=== PATIENT | female | born 1955 | race Caucasian/White ===

== ENCOUNTER 2017-09-19 11:06 | Outpatient (CLI) | payer OTHER ==
[~2017-09-19 11:06] MED LIST: AMARIL; CATAFLAM50 MG; GLUMETZA1000 MG
== END 2017-09-19 17:07 | disposition home or self-care (01) ==
LOC: LAB 11:06
DX: D68.8 Other specified coagulation defects (principal); M51.26 Other intervertebral disc displacement, lumbar region

== ENCOUNTER 2018-02-28 05:50 | Day surgery (SDC) | payer OTHER ==
[~2018-02-28 05:50] MED LIST changes: +CYMBALTA30 MG PO; +DOLOGESIC 500-1 EACH PO; +GABAPENTIN100 MG PO; +GABAPENTIN600 MG PO; +LIPITOR20 MG PO; +NORFLEX PO; +OSTERA TABLET1 EACH PO; +ZINC LOZENGES1 EACH PO; +[UNRECOGNIZED DRUG - OTHER] PO
== END 2018-02-28 10:25 | disposition home or self-care (01) ==
LOC: CIR.AMB 05:50
DX: M47.26 Other spondylosis with radiculopathy, lumbar region (principal); M47.27 Other spondylosis with radiculopathy, lumbosacral region

== ENCOUNTER 2018-08-31 16:00 | Emergency (ER) | payer OTHER ==
[~2018-08-31] VITALS: Ht 160 cm; Wt 88.5 kg
== END 2018-08-31 16:50 | disposition home or self-care (01) ==
LOC: ER 16:00
DX: L02.211 Cutaneous abscess of abdominal wall (principal)

== ENCOUNTER 2018-09-04 05:53 | Day surgery (SDC) | payer OTHER | END 2018-09-04 18:00 | disposition home or self-care (01) | LOC: CIR.AMB 05:53 | DX: L02.211 Cutaneous abscess of abdominal wall (principal) ==